=== PATIENT | female | born 1945 | race Caucasian/White ===

== ENCOUNTER → 2017-01-08 | Outpatient (CLI) | payer MEDICARE, OTHER | LOC: RAD 09:49 | PROVIDERS: ATTEND Physician Assistant | DX: M25.559 Pain in unspecified hip (principal); M51.37 Other intervertebral disc degeneration, lumbosacral region | CPT/HCPCS: 72148; 72195 ==

== ENCOUNTER 2017-02-02 08:08 | Day surgery (SDC) | payer MEDICARE, OTHER ==
[2017-02-02] MEDS ORDERED: EPINEPHRINE INJ/PF 1 MG/1 ML AMPULE ONE (08:10)
[2017-02-02] MEDS ORDERED: LIDOCAINE 1% INJ-PF (10 MG/ML) 30 ML SDV ONE (08:10)
[2017-02-02] MEDS ORDERED: CHONDR SU A NA/HYALUR INTRAOC KIT (SURGICARE) ONE (08:10)
[2017-02-02] MEDS: BESIFLOXACIN HCL 0.6% OPH SUSP 5 ML BOTTLE OS PRN ×4 (08:54→09:58)
[2017-02-02] MEDS: TROPICAMIDE 1% OPH SOLN 3 ML OS PRN ×2 (08:54→09:05)
[2017-02-02] MEDS: CYCLOPENTOLATE 0.2%/PHENYLEPHRINE 1% OPH SOLN 2 ML OS PRN ×3 (08:54→09:15)
[2017-02-02] MEDS: TETRACAINE HCL 0.5% OPH SOLN 2 ML OS PRN ×3 (08:55→09:26)
[2017-02-02] MEDS: KETOROLAC TROMETHAMINE 0.45% 4 DROP/0.4 ML DROPERETTE OS PRN ×2 (08:55→09:15)
[2017-02-02] MEDS ORDERED: MIDAZOLAM 2 MG/2 ML INJ ONE (09:05)
--- NOTE | 2017-02-02 13:33 | [facility] OPERATIVE REPORT E ---
[facility] Operative Report NAME: ISSA MATHEWS AGE: 71Y DATE OF SURGERY: 02/02/2017 ROOM: PREOPERATIVE DIAGNOSIS: Cataract, left eye. POSTOPERATIVE DIAGNOSIS: Cataract, left eye. OPERATION: Cataract extraction with intraocular lens implant of the left eye. SURGEON: JUAN DAVID WASHINGTON M.D. ANESTHESIA: Topical. PROCEDURE: After obtaining appropriate consent, the patient's left eye was prepped and draped in sterile fashion as well as the surgeon in a sterile manner and cataract surgery was started. First a paracentesis blade was used to make a small side-port incision. Viscoelastic was used to inflate the anterior chamber. Next a 2.4 mm incision was made with the paracentesis blade. A continuous capsulorrhexis incision was made using a cystotome and Utrata forceps. Following this hydrodissection was carried out to make the lens fully loose and mobile and it was rotated 90 degrees. Following this, a tpswkn-xpx-nebbgky technique was used to phacoemulsify the lens with a CDE of 12.60. The remaining cortex was removed with irrigation/aspiration. Provisc was instilled into the capsular bag to inflate the bag. A SN60WF, 21.0 diopter lens was placed. The remaining viscoelastic material was removed with irrigation/aspiration. Following this, a 10-0 nylon suture was used to close the incision and it was found to be watertight. Vigamox was instilled in the eye and a protective shield was placed over the eye. The patient returned to the postoperative recovery in stable condition. DICTATING PHYSICIAN: JUAN DAVID WASHINGTON M.D. [id number] PHY#: [id number] ID: [id number] JOB#: [id number] ACCT: [id number] cc:JUAN DAVID WASHINGTON M.D. >
--- NOTE | 2017-02-02 13:33 | [facility] DISCHARGE SUMMARY E ---
[facility] Discharge Summary NAME: ISSA MATHEWS AGE: 71Y ADMITTED: 02/02/2017 DISCHARGED: 02/02/2017 HOSPITAL COURSE: This is a 71-year-old female who underwent cataract extraction of the left eye. DIAGNOSIS: Cataract, left eye. INDICATIONS: She underwent surgery because she was having difficulty driving at night secondary to significant glare. DISCHARGE INSTRUCTIONS: She should be on a regular diet. No bending at her waist. No heavy lifting. She should use her Besivance, Ilevro, and Durezol at 3 p.m. and 8 p.m. and sleep with a rigid shield. I will see her for her 1 day postoperative tomorrow. DICTATING PHYSICIAN: [id number] PHY#: [id number] ID: [id number] JOB#: [id number] ACCT: [id number] cc:JUAN DAVID WASHINGTON M.D., WALTER M.D. >
== END 2017-02-02 10:47 | disposition home or self-care (01) ==
LOC: SC 08:08
PROVIDERS: ATTEND Internal Medicine
PROC: 08RK3JZ Replacement of Left Lens with Synthetic Substitute, Percutaneous Approach (ICD-10-PCS; principal; 2017-02-02 09:30)
DX: H25.12 Age-related nuclear cataract, left eye (principal); E78.00 Pure hypercholesterolemia, unspecified; E03.9 Hypothyroidism, unspecified; M19.90 Unspecified osteoarthritis, unspecified site; F17.210 Nicotine dependence, cigarettes, uncomplicated; G47.30 Sleep apnea, unspecified; Z85.828 Personal history of other malignant neoplasm of skin; Z87.11 Personal history of peptic ulcer disease; Z86.73 Personal history of transient ischemic attack (TIA), and cerebral infarction without residual deficits; Z88.8 Allergy status to other drugs, medicaments and biological substances; Z87.892 Personal history of anaphylaxis; Z79.82 Long term (current) use of aspirin; Z79.899 Other long term (current) drug therapy
CPT/HCPCS: 66984; V2632; J2250; J3490 ×2; A9270; J0171; 142

== ENCOUNTER 2017-03-04 06:51 | Day surgery (SDC) | payer MEDICARE, OTHER ==
[~2017-03-04 06:51] MED LIST: KETOROLAC TROMETHAMINE 0.45% 4 DROP/0.4 ML DROPERETTE OD PRN
[2017-03-04] MEDS ORDERED: LIDOCAINE 1% INJ-PF (10 MG/ML) 30 ML SDV ONE (07:11)
[2017-03-04] MEDS ORDERED: EPINEPHRINE INJ/PF 1 MG/1 ML AMPULE ONE (07:11)
[2017-03-04] MEDS ORDERED: CHONDR SU A NA/HYALUR INTRAOC KIT (SURGICARE) ONE (07:11)
[2017-03-04] MEDS: TETRACAINE HCL 0.5% OPH SOLN 2 ML OD PRN ×3 (07:15→07:57)
[2017-03-04] MEDS: CYCLOPENTOLATE 0.2%/PHENYLEPHRINE 1% OPH SOLN 2 ML OD PRN ×3 (07:16→07:37)
[2017-03-04] MEDS: BESIFLOXACIN HCL 0.6% OPH SUSP 5 ML BOTTLE OD PRN ×4 (07:16→08:24)
[2017-03-04] MEDS: TROPICAMIDE 1% OPH SOLN 3 ML OD PRN ×3 (07:16→07:37)
[2017-03-04] MEDS ORDERED: MIDAZOLAM 2 MG/2 ML INJ ONE (07:47)
[2017-03-04] MEDS ORDERED: FENTANYL CITRATE INJ/PF 100 MCG/2 ML AMPUL ONE (07:47)
--- NOTE | 2017-03-04 19:53 | [facility] OPERATIVE REPORT E ---
[facility] Operative Report NAME: ISSA MATHEWS AGE: 71Y DATE OF SURGERY: 03/04/2017 ROOM: PREOPERATIVE DIAGNOSIS: Cataract, right eye. POSTOPERATIVE DIAGNOSIS: Cataract, right eye. OPERATION: Cataract extraction with intraocular lens implant of the right eye. SURGEON: JUAN DAVID WASHINGTON M.D. ANESTHESIA: Topical. PROCEDURE: After obtaining appropriate consent, the patient's right eye was prepped and draped in sterile fashion as well as the surgeon in a sterile manner and cataract surgery was started. First a paracentesis blade was used to make a small side-port incision. Viscoelastic was used to inflate the anterior chamber. Next a 2.4 mm incision was made with the paracentesis blade. A continuous capsulorrhexis incision was made using a cystotome and Utrata forceps. Following this hydrodissection was carried out to make the lens fully loose and mobile and it was rotated 90 degrees. Following this, a axhejz-ves-apmouav technique was used to phacoemulsify the lens with a CDE of 11.66. The remaining cortex was removed with irrigation/aspiration. Provisc was instilled into the capsular bag to inflate the bag. A SN60WF, 21.0 diopter lens was placed. The remaining viscoelastic material was removed with irrigation/aspiration. Following this, a 10-0 nylon suture was used to close the incision and it was found to be watertight. Vigamox was instilled in the eye and a protective shield was placed over the eye. The patient returned to the postoperative recovery in stable condition. DICTATING PHYSICIAN: JUAN DAVID WASHINGTON M.D. [id number] PHY#: [id number] ID: [id number] JOB#: [id number] ACCT: [id number] cc:JUAN DAVID WASHINGTON M.D. >
--- NOTE | 2017-03-04 19:58 | [facility] DISCHARGE SUMMARY E ---
[facility] Discharge Summary NAME: ISSA MATHEWS AGE: 71Y ADMITTED: 03/04/2017 DISCHARGED: 03/04/2017 HISTORY OF PRESENT ILLNESS AND HOSPITAL COURSE: This is a 71-year-old female who underwent cataract extraction of the right eye. DIAGNOSIS: Cataract, right eye. HOSPITAL COURSE: She underwent surgery because she was having trouble seeing lines on the road and road signs. DISCHARGE INSTRUCTIONS: 1. She should be on a regular diet. 2. No bending at the waist and no heavy lifting. 3. I will see her for her one-day postoperative tomorrow. DICTATING PHYSICIAN: JUAN DAVID WASHINGTON M.D. [id number] PHY#: [id number] ID: [id number] JOB#: [id number] ACCT: [id number] cc:JUAN DAVID WASHINGTON M.D. >
== END 2017-03-04 09:05 | disposition home or self-care (01) ==
LOC: SC 06:51
PROVIDERS: ATTEND Internal Medicine
PROC: 08RJ3JZ Replacement of Right Lens with Synthetic Substitute, Percutaneous Approach (ICD-10-PCS; principal; 2017-03-04 08:00)
DX: H25.11 Age-related nuclear cataract, right eye (principal); Z96.1 Presence of intraocular lens; E07.9 Disorder of thyroid, unspecified; K21.9 Gastro-esophageal reflux disease without esophagitis; I49.9 Cardiac arrhythmia, unspecified; Z86.73 Personal history of transient ischemic attack (TIA), and cerebral infarction without residual deficits; Z79.899 Other long term (current) drug therapy; Z79.82 Long term (current) use of aspirin; Z88.8 Allergy status to other drugs, medicaments and biological substances
CPT/HCPCS: 66984; V2632; J2250; J3490 ×2; A9270; J0171; J3010; 142

== ENCOUNTER → 2017-05-12 | Outpatient (CLI) | payer MEDICARE, OTHER ==
--- NOTE | 2017-05-12 11:35 | RADIOLOGY REPORT (SQ) ---
EXAM DESCRIPTION: CT ABD/PELVIS WITH IV ORAL COMPLETED DATE/TIME: 05/12/2017 10:24 am REASON FOR STUDY: EPIGATRIC PAIN R10.13 EPIGASTRIC PAIN K25.3 ACUTE GASTRIC ULCER WITHOUT HEMORRHA GE OR PERFORATION COMPARISON: Upper GI small bowel series 11/22/2014 CT abdomen pelvis 06/19/2016 MRI pelvis 01/08/2017 TECHNIQUE: CT scan of the abdomen and pelvis performed using helical scanning technique with dynamic intravenous contrast injection. Patient drank oral contrast. Images reviewed with lung, soft tissue, and bone windows. Reconstructed coronal and sagittal MPR imag es reviewed. Delayed images for evaluation of the urinary system also acquired. All images stored on PACS. All CT scanners at this facility use dose modulation, iterative reconstruction, and/or weight based d osing when appropriate to reduce radiation dose to as low as reasonably achievable (ALARA). [facility]: Dose Right [facility]: CareDose [facility]: Dose Right [facility]: Teradose 4D [facility]: CloudTran CONTRAST TYPE AND DOSE: contrast/concentration: Isovue 370.00 mg/ml; Total Contrast Delivered: 44.0 ml; Total Saline Delivered: 65.0 ml RENAL FUNCTION: Creatinine 0.4 RADIATION DOSE: Up-to-date CT equipment and radiation dose reduction techniques were employed. CTDIv ol: 2.6 - 3.7 mGy. DLP: 393 mGy-cm.. LIMITATIONS: None. FINDINGS: LOWER CHEST: No significant findings. No nodules or infiltrates. LIVER: Normal size. No masses or dilated ducts. SPLEEN: Normal size. No focal lesions. PANCREAS: No masses. No significant calcifications. No adjacent inflammation or peripancreatic fluid collections. Pancreatic duct not dilated. GALLBLADDER: Surgically absent ADRENAL GLANDS: No significant masses or asymmetry. RIGHT KIDNEY AND URETER: No solid masses. No significant calcifications. No hydronephrosis or hyd roureter. LEFT KIDNEY AND URETER: No solid masses. No significant calcifications. No hydronephrosis or hydr oureter. AORTA AND VESSELS: Heavily calcified abdominal aorta without calcified aneurysm. Heavy visceral bre ry origin calcifications particularly along the bilateral renal arteries. Heavily calcified bilatera l proximal common iliac arteries. RETROPERITONEUM: No retroperitoneal adenopathy, hemorrhage or masses. BOWEL AND PERITONEAL CAVITY: No masses or inflammatory changes. No free fluid or peritoneal masses. Patient is post partial gastrectomy, with Billroth 2 anatomy. Oral contrast throughout the gastroint estinal tract without evidence of bowel obstruction. No free intraperitoneal air or fluid. APPENDIX: Not identified. No pericecal inflammation. PELVIS: No mass or free fluid. Normal bladder. ABDOMINAL WALL: No masses. No hernias. BONES: Bilateral sacral insufficiency fractures seen on MRI 01/08/2017 are sclerotic on today's CT. B ilateral SI joint vacuum phenomenon. Disc space loss of height at L3-4. Old healed left inferior pu bic ramus fracture. Stable T11 25 to 50% compression deformity as compared to CT 06/19/2016 and MRI OTHER: No other significant finding. IMPRESSION: Patient has had a partial gastrectomy. Consider upper GI there is clinical concern for ulcer. No gross CT evidence of acute pancreatitis Post cholecystectomy. TECHNICAL DOCUMENTATION: JOB ID: [id number] Quality ID # [id number]: Final reports with documentation of one or more dose reduction techniques (e.g., Au tomated exposure control, adjustment of the mA and/or kV according to patient size, use of iterative reconstruction technique) 2010 [employer]- All Rights Reserved
== END ==
LOC: WI 09:11
PROVIDERS: ATTEND Internal Medicine Gastroenterology
DX: R10.13 Epigastric pain (principal); K25.3 Acute gastric ulcer without hemorrhage or perforation
CPT/HCPCS: 74177; 82565

== ENCOUNTER → 2017-07-21 | Outpatient (CLI) | payer MEDICARE, OTHER ==
[2017-07-21 13:33] LABS: HEMATOCRIT 37.6 % (36.0-47.0); HGB HCT DIFFERENCE -1.6; MEAN CORPUSCULAR HEMOGLOBIN 28.8 pg (27.0-33.4); MEAN CORPUSCULAR HGB CONC 31.9 g/dL (32.0-36.0); MEAN CORPUSCULAR VOLUME 91 fl (80-97); RED BLOOD COUNT 4.15 10^6/uL (3.72-5.28); RED CELL DISTRIBUTION WIDTH 16.3 % (11.5-14.0); WHITE BLOOD COUNT 4.2 10^3/uL (4.0-10.5)
[2017-07-21 13:53] LABS: ALANINE AMINOTRANSFERASE 26 U/L (9-52); ALBUMIN 4.1 g/dL (3.5-5.0); ALKALINE PHOSPHATASE 93 U/L (38-126); ANION GAP 13 (5-19); ASPARTATE AMINO TRANSFERASE 24 U/L (14-36); BILIRUBIN,DIRECT 0.4 mg/dL (0.0-0.4); BILIRUBIN,TOTAL 0.5 mg/dL (0.2-1.3); BLOOD UREA NITROGEN 21 mg/dL (7-20); CALCIUM 9.7 mg/dL (8.4-10.2); CARBON DIOXIDE 24 mmol/L (22-30); CHLORIDE 106 mmol/L (98-107); CREATININE RESULT 0.38 mg/dL (0.52-1.25); GLUCOSE 82 mg/dL (75-110); POTASSIUM 3.7 mmol/L (3.6-5.0); SODIUM 143.2 mmol/L (137-145); TOTAL PROTEIN 6.6 g/dL (6.3-8.2)
[2017-07-23 06:38] LABS: HEPATITIS C VIRUS AB <0.1 s/co ratio (0.0-0.9)
[2017-07-24 08:17] LABS: GASTRIN SERUM <10 pg/mL (0-115)
== END ==
LOC: OD 12:36
PROVIDERS: ATTEND Physician Assistant
DX: R10.13 Epigastric pain (principal); K25.9 Gastric ulcer, unspecified as acute or chronic, without hemorrhage or perforation
CPT/HCPCS: 36415; 80048; 80076; 82941; 85027; 86677; 86803; 86804

== ENCOUNTER → 2017-08-02 | Outpatient (CLI) | payer MEDICARE, OTHER ==
--- NOTE | 2017-08-02 12:47 | RADIOLOGY REPORT (SQ) ---
EXAM DESCRIPTION: CHEST PA/LAT COMPLETED DATE/TIME: 08/02/2017 12:37 pm REASON FOR STUDY: COUGH (R05), BRONCHOPNEUMONIA (J18.0) COMPARISON: 07/24/2014 EXAM PARAMETERS: NUMBER OF VIEWS: two views TECHNIQUE: Digital Frontal and Lateral radiographic views of the chest acquired. RADIATION DOSE: NA LIMITATIONS: none FINDINGS: LUNGS AND PLEURA: The lungs are hyperexpanded. There is no infiltrate or effusion. MEDIASTINUM AND HILAR STRUCTURES: No masses or contour abnormalities. HEART AND VASCULAR STRUCTURES: Heart normal size. No evidence for failure. BONES: No acute findings. HARDWARE: There is a stent in what may represent the left ventricular outflow tract. OTHER: No other significant finding. IMPRESSION: Chronic lung changes with no acute intracranial pathology. TECHNICAL DOCUMENTATION: JOB ID: [id number] [employer]- All Rights Reserved
== END ==
LOC: RAD 12:27
PROVIDERS: ATTEND Physician Assistant
DX: R05 Cough (principal); J18.0 Bronchopneumonia, unspecified organism
CPT/HCPCS: 71020

== ENCOUNTER 2017-11-09 05:23 | Emergency (ER) | payer MEDICARE, OTHER ==
[2017-11-09] MEDS ORDERED: ONDANSETRON HCL INJ/PF 4 MG/2 ML SDV IV ONE (05:26)
[2017-11-09] MEDS ORDERED: PANTOPRAZOLE SODIUM 40 MG VIAL IV ONE (05:27)
[2017-11-09] MEDS ORDERED: PANTOPRAZOLE SODIUM 40 MG VIAL IV PRN (05:27)
--- NOTE | 2017-11-09 05:31 | ER Document Report ---
ED Medical Screen (RME) - General Stated Complaint: HEMMOARAGE Time Seen by Provider: 11/09/17 05:25 Notes: 72-year-old female, comes by EMS for chief complaint of several episodes of bloody stools tonight, she vomited once with bright red blood mixed in, she reports abdominal pain. Takes aspirin, denies blood thinners, denies history of alcohol use or abuse, denies any history of cirrhosis or varices. 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 States she thinks she had a heart valve replacement but she again denies blood thinners. Passed out at home after vomiting. Given fluids by EMS. TRAVEL OUTSIDE OF THE [place] IN LAST 30 DAYS: No - Related Data Allergies/Adverse Reactions: atropine sulfate [From Lomotil] Allergy (Severe, Verified 02/02/17 09:14) Shortness of Breath diphenoxylate HCl [From Lomotil] Allergy (Severe, Verified 02/02/17 09:14) SOB, HIVES guaifenesin [From Robitussin] Allergy (Severe, Verified 02/02/17 09:14) SOB, SWELLING ceftriaxone [From Rocephin] Allergy (Verified 02/02/17 09:14) hive adhesive tape [Adhesive Tape] Adverse Reaction (Verified 02/02/17 09:14) Past Medical History - Past Medical History Cardiac Medical History: Denies: Hx Heart Attack, Hx Hypertension Pulmonary Medical History: Denies: Hx Asthma Neurological Medical History: Denies: Hx Cerebrovascular Accident, Hx Seizures GI Medical History: Reports: Hx Ulcer - X 5. Denies: Hx Hepatitis, Hx Hiatal Hernia Infectious Medical History: Denies: Hx Hepatitis Past Surgical History: Reports: Hx Abdominal Surgery - part of large intestine removed, Hx Cholecystectomy, Hx Hysterectomy, Hx Open Heart Surgery - valve replacement, Hx Urinary Tract Surgery - bladder sling. Denies: Hx Mastectomy, Hx Pacemaker Physical Exam - General General appearance: Alert, Anxious - Abdominal Distension: No: Distended Tenderness: Tender - Mild generalized tenderness, nonspecific, no guarding. No : Guarding Course - Re-evaluation Re-evalutation: Patient slightly pale, has a tremor which is exaggerated, tremor at baseline reportedly. Mild generalized abdominal tenderness. No hypotension at this time. Workup pending.
[2017-11-09] MEDS ORDERED: NORMAL SALINE 250 ML IV PRN ×3 (05:38→07:29)
[2017-11-09 05:48] LABS: ABSOLUTE LYMPHOCYTES (AUTO) 1.9 10^3/uL (0.5-4.7); ABSOLUTE MONOCYTES (AUTO) 0.6 10^3/uL (0.1-1.4); ABSOLUTE NEUT (AUTO) 9.1 10^3/uL (1.7-8.2); BASOPHILS % (AUTO) 0.3 % (0-2); EOSINOPHILS % (AUTO) 0.4 % (0-6); HEMATOCRIT 30.1 % (36.0-47.0); HEMOGLOBIN 9.6 g/dL (12.0-15.5); HGB HCT DIFFERENCE -1.3; LYMPHOCYTES % (AUTO) 16.4 % (13-45); MEAN CORPUSCULAR HEMOGLOBIN 28.4 pg (27.0-33.4); MEAN CORPUSCULAR VOLUME 89 fl (80-97); MONOCYTES % (AUTO) 4.9 % (3-13); RED BLOOD COUNT 3.39 10^6/uL (3.72-5.28); RED CELL DISTRIBUTION WIDTH 15.4 % (11.5-14.0); WHITE BLOOD COUNT 11.7 10^3/uL (4.0-10.5)
[2017-11-09 05:56] LABS: PARTIAL THROMBOPLASTIN TIME 26.3 SEC (23.5-35.8); PROTHROMBIN TIME 13.9 SEC (11.4-15.4)
--- NOTE | 2017-11-09 06:12 | RADIOLOGY REPORT (SQ) ---
EXAM DESCRIPTION: CHEST SINGLE VIEW CLINICAL HISTORY: vomiting blood, hypotension COMPARISON: 08/02/2017 FINDINGS: Single frontal view of the chest. Atherosclerotic calcification aortic arch. Valve repair. Leads overlie the chest. No consolidation, pneumothorax, or pleural effusion. No displaced rib fractures identified. Upper abdominal soft tissues are unremarkable. IMPRESSION: 1. No acute pulmonary process identified.
[2017-11-09 06:18] LABS: ALANINE AMINOTRANSFERASE 20 U/L (9-52); ALBUMIN 3.4 g/dL (3.5-5.0); ALKALINE PHOSPHATASE 61 U/L (38-126); ANION GAP 10 (5-19); ASPARTATE AMINO TRANSFERASE 40 U/L (14-36); BLOOD UREA NITROGEN 24 mg/dL (7-20); CALCIUM 8.6 mg/dL (8.4-10.2); CARBON DIOXIDE 26 mmol/L (22-30); CHLORIDE 112 mmol/L (98-107); CREATININE RESULT 0.48 mg/dL (0.52-1.25); GLUCOSE 136 mg/dL (75-110); POTASSIUM 4.8 mmol/L (3.6-5.0); SODIUM 147.5 mmol/L (137-145); TOTAL PROTEIN 5.9 g/dL (6.3-8.2)
[2017-11-09 06:20] LABS: BILIRUBIN,TOTAL < 0.1 mg/dL (0.2-1.3)
--- NOTE | 2017-11-09 06:27 | ER Document Report ---
ED General <ALVAREZ ACEVES - Last Filed: 11/09/17 09:07> - General Mode of Arrival: Medic Information source: Patient TRAVEL OUTSIDE OF THE [place] IN LAST 30 DAYS: No - HPI Onset: Yesterday <KEATON CHEEMA - Last Filed: 11/09/17 14:12> - General Chief Complaint: GI Bleeding Stated Complaint: HEMMOARAGE Time Seen by Provider: 11/09/17 05:25 Notes: Patient is a 72 year old female with a history of multiple anastomotic ulcers and gastric bypass, presents to the emergency department via EMS complaining of multiple symptoms including abdominal pain, several bloody stools and vomiting blood onset last night. Patient describes her vomit a mixture with bright red blood. Patient states that she had a syncopal episode after vomiting. Prior to arrival EMS found the patient to be hypotensive and hypothermic and the patient was given TXA and fluids. 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 Patient states she had her previous surgeries at [place] and [place]. (KEATON CHEEMA) - Related Data Allergies/Adverse Reactions: atropine sulfate [From Lomotil] Allergy (Severe, Verified 02/02/17 09:14) Shortness of Breath diphenoxylate HCl [From Lomotil] Allergy (Severe, Verified 02/02/17 09:14) SOB, HIVES guaifenesin [From Robitussin] Allergy (Severe, Verified 02/02/17 09:14) SOB, SWELLING ceftriaxone [From Rocephin] Allergy (Verified 02/02/17 09:14) hive adhesive tape [Adhesive Tape] Adverse Reaction (Verified 02/02/17 09:14) Past Medical History - General Information source: Patient - Social History Smoking Status: Current Every Day Smoker Frequency of alcohol use: None Drug Abuse: None Family History: Reviewed & Not Pertinent GI Medical History: Reports: Hx Ulcer - X 5 Past Surgical History: Reports: Hx Abdominal Surgery - part of large intestine removed, Hx Cholecystectomy, Hx Hysterectomy, Hx Open Heart Surgery - valve replacement, Hx Urinary Tract Surgery - bladder sling - Immunizations Hx Pneumococcal Vaccination: 07/18/14 <KEATON CHEEMA - Last Filed: 11/09/17 14:12> Review of Systems - Review of Systems Constitutional: No symptoms reported EENT: No symptoms reported Cardiovascular: No symptoms reported Respiratory: No symptoms reported Gastrointestinal: See HPI, Abdominal pain, Vomiting, Blood streaked bowels - vomiting blood Genitourinary: No symptoms reported Female Genitourinary: No symptoms reported Musculoskeletal: No symptoms reported Skin: No symptoms reported Hematologic/Lymphatic: No symptoms reported Neurological/Psychological: See HPI, Lost consciousness -: Yes All other systems reviewed and negative <KEATON CHEEMA - Last Filed: 11/09/17 14:12> Physical Exam - General General appearance: Appears well, Alert In distress: None - HEENT Head: Normocephalic, Atraumatic Eyes: Normal Conjunctiva: Normal - Respiratory Respiratory status: No respiratory distress Chest status: Nontender Breath sounds: Other - Coarse - Cardiovascular Rhythm: Regular Heart sounds: Normal auscultation - Abdominal Inspection: Normal Distension: No distension Bowel sounds: Hypoactive Tenderness: Tender - tender to palpation to epigastric area and LLQ Organomegaly: No organomegaly - Back Back: Normal - Extremities General upper extremity: Normal inspection, Normal ROM General lower extremity: Normal inspection, Normal ROM Ankle: No: Edema - Neurological Neuro grossly intact: Yes Cognition: Normal Orientation: AAOx4 [place] Coma Scale Eye Opening: Spontaneous [place] Coma Scale Verbal: Oriented [place] Coma Scale Motor: Obeys Commands [place] Coma Scale Total: 15 Speech: Normal - Psychological Associated symptoms: Normal affect, Normal mood - Skin Skin Temperature: Warm Skin Moisture: Dry <KEATON CHEEMA - Last Filed: 11/09/17 14:12> - Vital signs Vitals: Resp 21 H 11/09/17 05:28 Course - Laboratory Result Diagrams: 11/09/17 05:31 11/09/17 05:31 - Diagnostic Test Radiology reviewed: Image reviewed, Reports reviewed - Chest x-ray does not show an acute process - EKG Interpretation by Md EKG shows normal: Sinus rhythm, [place], Intervals, QRS Complexes, ST-T Waves Rate: Normal - 72 Rhythm: NSR - Consults Dr. Villaseñor Time consulted: 07:30 Consulted provider: other - Will accept as an ER [facility] ER transfer at [facility]. <ALVAREZ ACEVES - Last Filed: 11/09/17 09:07> - Laboratory Result Diagrams: 11/09/17 05:31 11/09/17 05:31 <KEATON CHEEMA - Last Filed: 11/09/17 14:12> - Re-evaluation Re-evalutation: 11/09/17 09:07 Air transport is here for the patient. Her pulse is 70, blood pressure is 99 systolic, she is receiving blood. She is stable for transport at this time. ( ALVAREZ ACEVES) - Vital Signs Vital signs: Temp Pulse Resp BP Pulse Ox 98.8 F 69 18 101/53 L 98 11/09/17 09:06 11/09/17 09:06 11/09/17 09:06 11/09/17 09:06 11/09/17 09:06 - Laboratory Laboratory results interpreted by me: 11/09/17 11/09/17 11/09/17 05:31 05:31 05:31 WBC 11.7 H RBC 3.39 L Hgb 9.6 L Hct 30.1 L RDW 15.4 H Absolute Neutrophils 9.1 H Sodium 147.5 H Chloride 112 H BUN 24 H Creatinine 0.48 L Glucose 136 H Total Bilirubin < 0.1 L AST 40 H Total Protein 5.9 L Albumin 3.4 L Crossmatch See Detail 11/09/17 06:19 WBC RBC Hgb Hct RDW Absolute Neutrophils Sodium Chloride BUN Creatinine Glucose Total Bilirubin AST Total Protein Albumin Crossmatch See Detail - EKG Interpretation by Me Additional EKG results interpreted by me: 11/09/17 07:50 First EKG was read as fib flutter by the machine due to the patient's hypothermia and shivering. A repeat EKG after the patient's core temperature had returned to normal shows a normal sinus rhythm. (ALVAREZ ACEVES) Critical Care Note - Critical Care Note Total time excluding time spent on procedures (mins): 45 <ALVAREZ ACEVES - Last Filed: 11/09/17 09:07> Discharge <ALVAREZ ACEVES - Last Filed: 11/09/17 09:07> <KEATON CHEEMA - Last Filed: 11/09/17 14:12> - Discharge Clinical Impression: Upper GI hemorrhage, Syncope and collapse Hypotension Qualifiers: Hypotension type: unspecified hypotension type Qualified Code(s): I95.9 - Hypotension, unspecified Hypothermia Qualifiers: Encounter type: initial encounter Qualified Code(s): T68.XXXA - Hypothermia, initial encounter Condition: Good Disposition: [place] Referrals: DOUG HO PA-C [Primary Care Provider] - Follow up as needed Scribe Attestation: 11/09/17 07:31 I personally performed the services described in the documentation, reviewed and edited the documentation which was dictated to the scribe in my presence, and it accurately records my words and actions. (ALVAREZ ACEVES) Scribe Documentation - Scribe Written by Thea:: Thea Wheeler, 11/09/2017 06:54 acting as scribe for :: Trish <KEATON CHEEMA - Last Filed: 11/09/17 14:12>
[2017-11-09 09:37] VITALS: BP 101/53
--- NOTE | 2017-11-09 10:53 | EKG REPORT ---
SEVERITY:- NORMAL ECG - SINUS RHYTHM : Confirmed by: Sirena Cleveland MD 09-Nov-2017 10:52:27
--- NOTE | 2017-11-09 10:54 | EKG REPORT ---
SEVERITY:- ABNORMAL ECG - DEFECTIVE EKG.REPEAT.MOST LIKELY SINUS RHYTHM. : Confirmed by: Sirena Cleveland MD 09-Nov-2017 10:53:31
== END 2017-11-09 09:36 | disposition short-term general hospital (02) ==
LOC: ER 05:23
DX: K92.2 Gastrointestinal hemorrhage, unspecified (principal); I95.9 Hypotension, unspecified; R55 Syncope and collapse; R10.816 Epigastric abdominal tenderness; R10.814 Left lower quadrant abdominal tenderness; T68.XXXA Hypothermia, initial encounter; X58.XXXA Exposure to other specified factors, initial encounter; F17.200 Nicotine dependence, unspecified, uncomplicated; Z98.84 Bariatric surgery status; Z95.2 Presence of prosthetic heart valve; Z88.1 Allergy status to other antibiotic agents; Z88.8 Allergy status to other drugs, medicaments and biological substances; Z90.49 Acquired absence of other specified parts of digestive tract
CPT/HCPCS: 93005; 99291; 96374; 96375; 86900; 86901; 36415; 36430; 86850; 85025; 85610; 85730; 82272; 80053; 86920; 71010; 93010; P9016; C9113; J2405; S0164